=== PATIENT | male | born 1985 | race Caucasian/White ===

== ENCOUNTER 2018-04-08 16:51 | Inpatient (IN) | payer OTHER ==
--- NOTE | 2018-04-08 17:19 | EDPHY ---
H & P Smoking Status: Never smoked Time Seen by Provider: 04/08/18 17:00 HPI/ROS: CHIEF COMPLAINT: Anxiety and possible paranoia HISTORY OF PRESENT ILLNESS: Patient is a 32-year-old male with a history of anxiety and depression and substance abuse sent here by EMS with concern for the paranoia. Patient states that is experiencing concerned that all there were people slammed during have which she has experienced in the past and he went to his human resource office at work to see if he could discuss this possibility that people were accessing his phone and he was then taken away by EMS. Reports no prior history of schizophrenia or paranoia. He does report a history of childhood anxiety and depression but takes no prescribed medication at this time. He denies any current drug use has been sober for 6 years. Denies hallucinations, suicidal ideation and homicidal ideation. REVIEW OF SYSTEMS: Constitutional: No fever, no chills. Eyes: No discharge. ENT: No sore throat. Cardiovascular: No chest pain, no palpitations. Respiratory: No cough, no shortness of breath. Gastrointestinal: No abdominal pain, no vomiting. Genitourinary: No hematuria. Musculoskeletal: No back pain. Skin: No rashes. Neurological: No headache. (Dereje Marin) Physical Exam: General Appearance: Alert and oriented x3 and no distress. Eyes: Pupils equal and round no injection. Respiratory: Chest is nontender, lungs are clear to auscultation. Cardiac: regular rate and rhythm. Gastrointestinal: Abdomen is soft and nontender, no masses, bowel sounds normal. Musculoskeletal: Neck is supple and nontender. Extremities have full range of motion and are nontender. Skin: No rashes or lesions. (Dereje Marin) Constitutional: Initial Vital Signs Temperature (C) 36.7 C 04/08/18 16:53 Heart Rate 86 04/08/18 16:53 Respiratory Rate 18 04/08/18 16:53 Blood Pressure 139/89 H 04/08/18 16:53 O2 Sat (%) 96 04/08/18 16:53 O2 Delivery Mode Room Air Allergies/Adverse Reactions: cephalexin [From Keflex] Allergy (Verified 04/09/18 11:22) Hives Home Medications: Medication Instructions Recorded Multivitamins [Multivitamin (*)] 1 each PO DAILY 06/22/18 Medical Decision Making ED Course/Re-evaluation: Patient medically cleared and awaiting psychiatric evaluation at the end of my shift. Patient signed out to Dr. Rivero for further management of his care. He was given 1 mg of Ativan as needed for sleep. (Dereje Marin) 0700AM: No acute events overnight. Sleeping. Signed over to Dr. Chauhan 7Am Shift change. (Sebastian Rivero) 7:00 a.m.-I assumed care of this patient at shift change. 8:30 a.m.-seen by mental health and looking for inpatient disposition. Admitted to [facility] (Jillian Bishop) - Data Points Laboratory Results: Laboratory Results 04/08/18 17:05 04/08/18 17:05 Medications Given: Discontinued Medications Lorazepam (Ativan) 1 mg PO EDNOW ONE Stop: 04/08/18 23:39 Last Admin: 04/08/18 23:43 Dose: 1 mg Departure - Departure Disposition: [facility] IP Clinical Impression: Acute psychosis Condition: Fair
[2018-04-08 17:50] LABS: PLATELET COUNT 306 10^3/uL (150-400)
[2018-04-08] MEDS ORDERED: LORazepam 1 MG TAB PO ONE (23:38)
--- NOTE | 2018-04-09 00:30 | ASMTTLCEVL ---
TLC Evaluation - Basic Information Evaluation Start Date and 04/08/2018 08:30 PM Time Hospital Status Answers: M1 Hold 72-hr M1 Hold Start Date 04/08/2018 04:21 PM and Time Patient statement Notes: " I went to the HR counselor at work to try to either get to the bottom of or get help with work place incident." Narrative Notes: Pt is a 32 year old male who presented to [facility] via [facility] after pt was placed on a M1 hold by MANUEL Luciano who works in pt's EAP program through his work. Pt stated he worked in [facility] and was involved with "toxic people" and his "computer hard drive got copied." Pt stated his 12 step inventory was also "taken and shared." Pt stated after these incidents, "this caused me to be concerned about my electronic saftey." Pt stated once he moved down here and started working at , he started becoming concerned and noticed that people's behavior would change when he would add their number in his phone contacts. Pt stated he had a nice relationship with his rn mds but when he put her phone number in his phone, "I noticed a change in her behavior." Pt stated he has been concerned that his supervisor soldering may be trying to "set him up with another molina man" because " people assume I'm molina because I don't date." Pt stated he was working the graveyard shift one night and noticed another man working with him alone and felt that his supervisor soldering intentionally put this other worker on shift with him. Pt stated he confronted his supervisor soldering about this and pt stated, "He got real scared." This clinician spoke with MAUNEL Luciano who stated that she spoke with pt for 2 hours today and this was her first interaction with him. Diane stated that pt talked about being followed by "a whole group of people," people being in his apartment and being followed by someone at 2am. Diane stated pt presented as "very confused and agitated," and came across as "not being in touch with reality." Diagnosis History Notes: Pt stated he was dx with depression and anxiety in middle school. Prior suicide attempts Notes: Pt denied any prior suicide attempts Prior hospitalizations Notes: Pt stated he was hospitalized in middle school after his parents . Treatment Responses Notes: Unknown. History of violence Notes: Pt denies any hx of violence. Medications (name, dosage, route, freq uency) Notes: Pt does not take any medications. Allergies/Reaction Notes: Keflex Sleep Notes: WNL Appetite Notes: WNL Medical/Surgical history Notes: Pt stated he does not have any medical problems. 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 Pt stated he is actively involved in the AA program and has a sponsor. Pt denied any drug use. Utox was negative for all substances. BAL was .0. Family composition Notes: Pt stated his parents live in [place]. Pt has a younger BOC who also lives in [place]. Need for family Answers: No participation in patient's care Family psychiatric/substance abuse history Notes: Pt stated his FOC is a recovering alcoholic. Developmental history Notes: Pt stated his parents when he was in middle school and was dx with anxiety, add and depression at that time. Pt stated he was hospitalized in a psychiatric hospital but declined to give any further details. Pt denied any concussions/LOC. When asked about childhood abuse/trauma, pt stated he has managed his issues though his step work. Marital status/children Notes: Pt is single. No children. Living situation Notes: Pt lives in [place] with a another couple. Sexual history/orientation Notes: Pt is heterosexual. Peer support/family strengths Notes: Pt stated he felt let down by his friends in [facility] and doesn't feel very trusting of people. Education level/history Notes: Pt is currently at [employer] studying political science. 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 Notes: None Legal Notes: Pt stated he was arrested twice in college for possessing a fake ID. Confucianist/Spiritual Notes: Pt stated he believes his" higher power is the solution to giving me what I need." Leisure Notes: Snowboarding, skiing Collateral Notes: Diane Luciano LCSW. TLC Evaluation - Mental Status Exam Appearance: Answers: Appropriate Eye Contact: Answers: Good/Direct Affect: Answers: Labile Nervous Behavior: Answers: Cooperative Speech: Answers: Logical Perseverating Thought Process: Answers: Oriented Insight: Answers: Fair Judgement: Answers: Fair Anxiety Signs/Symptoms Answers: Generalized Anxiety Delusions: Answers: Paranoid Ideation Pt reported to have Answers: No suicidal/self-injuring ideation/behavior? Pt reported to be making Answers: No suicidal/self-injuring threats? Pt reported to have Answers: No aggression/assault ideation/behavior? Pt reported to be making Answers: No aggression/assault threats? Pt exhibits inability to Answers: No care for self/grave disability? Ideation/behavior is Answers: No chronic? Patient has a specific Answers: No plan? Pt has access to means to Answers: No execute the plan? Ideation involves Answers: No serious/lethal intent? Ideation has Answers: No delusional/hallucinatory content? History of Answers: No suicidal/self-injuring ideation, behavior, or threats? History of Answers: No aggressive/assaultive ideation, behavior, or threats? History of serious Answers: No physical harm to self/others while in treatment setting? TLC Evaluation - Suicide/Homicide Risk Suicide Risk Factors: Answers: < 20 or > 40 Years of Age Inadequate Social Support Single Homicide/violence risk Answers: None factors: Current Suicidal Answers: No Ideation? Current Suicidal Ideation Answers: No in the Past 48 Hours? Current Suicidal Ideation Answers: No in the Past Month? Current Suicidal Answers: No Ideation, Worst Ever? Suicide Internal Answers: Confucianist Beliefs Protective Factors: Suicide External Answers: Responsibility to Pets Protective Factors: Ranking of patient's Answers: Low suicidal risk: Ranking of patient's Answers: Low homicidal risk: TLC Evaluation - Wrap-up AXIS I Diagnosis (include DSM-V and ICD-10 codes), must also be entered in [place], which is the source of truth. Notes: DELUSIONAL DISORDER (Specifier) 297.1 (F22) Evaluation End Date and 04/09/2018 12:25 AM Time (HH:MM): Date Signed: 04/09/2018 12:29 AM Electronically Signed By:Asia Toscano
--- NOTE | 2018-04-09 10:20 | ASMTTCLDSP ---
TLC Discharge Disposition Disposition: Answers: Admit Disposition Notes: Notes: Pt was read rights and informed of admit to [facility] under a M1 hold. For [facility] admission, the following psychiatrist agreed to accept patient for admission to Behavioral Health ([facility]): Type of Hold: Answers: Involuntary Transportation Hold Hold initiated by: Answers: Other Notes: [facility] Date Signed: 04/09/2018 10:20 AM Electronically Signed By:Cecile Bellamy
[2018-04-09] MEDS ORDERED: MAG HYDROX/AL HYDROX/SIMETH 30 ML UDCUP PO PRN (13:20)
[2018-04-09] MEDS ORDERED: MAGNESIUM HYDROXIDE 30 ML UDCUP PO PRN (13:20)
[2018-04-09] MEDS ORDERED: ACETAMINOPHEN 325 MG TAB PO PRN (13:20)
[2018-04-09] MEDS: NICOTINE POLACRILEX 2 MG GUM B PRN (15:47)
[2018-04-09] MEDS ORDERED: OLANZapine DISINTEGR 5 MG TAB PO PRN (16:55)
--- NOTE | 2018-04-09 17:18 | BAPA ---
[f rep st] ADMISSION PSYCHIATRIC ASSESSMENT DATE OF SERVICE: 04/09/2018 CHIEF COMPLAINT: "I had a sneaking suspicion that due to me bringing up an issue with my cosmetics supervisor, my work environment became a hostile environment." HISTORY OF PRESENT ILLNESS: Pertinent findings from emergency department note. Dated 04/08/2018. The patient was sent to the ER by EMS with concern of paranoia. The patient went to his human resource office at work to see if they could discuss the possibility of people accessing his phone, and then he was placed on an M1 hold and taken away by EMS. The patient denied history of schizophrenia or paranoia. He did report history of anxiety and depression. The patient reported he has been sober from alcohol for 6 years. In the ED, the patient denied hallucinations, suicidal ideation, and homicidal ideation. Pertinent findings from TLC evaluation, dated 04/08/2018. Patient reported to the TLC test engine evaluator that he went to the HR counselor at work to try to either get to the bottom of or get help with workplace incident. The patient presented to [facility] via [facility] after the patient was placed on an M1 hold by SIGN BUILDER SUPERVISOR who worked at the patient's EAP program through his work. Patient reported to the TLC test engine evaluator that he worked in [facility] and was involved with "toxic people" and his "computer hard drive got copied." The patient stated that his 12-step inventory was also "taken and shared." Patient reported that these incidents caused him to be concerned about his electronic safety. The patient reported that once he moved down here to [place] and started working at [employer], he started becoming concerned and noticed that people's behaviors would change when he would add their phone number in his phone contacts. For example, patient reported that he had a nice relationship with his public information specialist, but as soon as he put her phone number in his phone, he stated that her behavior changed. The patient reported that he was concerned that his cosmetics supervisor may be trying to "set him up with another molina man, " because "people assume I'm molina because I don't date." The patient reported that when he was working graveyard shift one night, he noticed another man working with him alone and felt that his cosmetics supervisor intentionally put this worker on the shift with him. The patient stated that he confronted his cosmetics supervisor about this, and patient stated "he got really scared." TLC test engine evaluator spoke with the counselor that placed the patient on the M1 hold, and the counselor reported that this was her first interaction with the patient, and the counselor reported that the patient reported to her that he was being followed by a whole group of people, people being in his apartment, and being followed by someone at 2 a.m. The counselor reported to the TLC test engine evaluator that the patient was very confused and agitated and came across as unable to test reality. The patient was admitted on an M1 hold due to being gravely disabled due to his paranoid behaviors and thoughts. He was reporting to others is currently hospitalized for safety crisis stabilization and medication evaluation. This interviewer reviewed some of the reports that the patient gave to the ED provider and also the TLC test engine evaluator, and the patient does agree with this and states that this is all valid and was occurring. He did report that he was living in [facility] and reports that this group of people that were considered "toxic people" are now trying to pry into his personal life and have been getting others involved in prying into his personal life, including his cosmetics supervisor at work and others at his current work. The patient denies any diagnosis of a current mental illness. Patient states that he was not using any alcohol or substances prior to his hospitalization. Patient describes current psychiatric symptoms as none. Patient describes abuse history as none. With regard to current functioning, the patient describes that his current psychiatric symptoms are having no real affect on his life. He states that he is currently addressing household responsibilities without difficulty. States that other than this incident, he has been working without any difficulty. States that he is starting to socialize more. Reports that he gets along with his parents and his brother, is currently taking a summer course and reports this is going well. The patient reports he does engage in hobbies, and typically these hobbies include working with his dogs and dog sports. Patient reports that he is generally satisfied with his life. Patient denies current suicidal or homicidal ideation and denies current self-injurious ideation. Patient reports protective factors and reasons to live as his dog and his future. Patient reports future goals as finishing his college degree. Patient reports he currently does not have any solid support network as he just recently moved to [place]. Patient reports he currently does not have any outpatient treatment for medication management or therapy. PAST PSYCHIATRIC HISTORY: Patient describes the following psychiatric history. Patient does report having some depression and anxiety in middle school. Patient denies ever being on any psychotropic medications for depression or anxiety. Patient reports history of seeing no one outpatient, no professionals for medication management or therapy. The patient reports history of one inpatient psychiatric hospitalization in [place] around the year 1994 for depression, right around the time his parents . Patient denies history of withdrawal from drugs or alcohol. Patient denies history of suicidal ideation or attempts and denies history of self-injurious behavior. ALLERGIES: Cephalexin. CURRENT MEDICATIONS: None. PAST MEDICAL HISTORY: Patient describes the following. Patient denies any history of neurological disease, traumatic brain injuries or concussions. The patient denies history of major illnesses or major hospitalizations. SOCIAL HISTORY: The patient describes the following social history. Patient reports he was born in [place], and his parents were at the time of his . Patient states his parents got a divorce when he was around the age of 10 and reports he was raised majority of his life in [place] by both parents. The patient reports he currently lives in [place] with roommates. Patient describes meeting all his developmental milestones growing up and reports no learning delays or difficulties. Patient describes his sexual orientation as heterosexual. States he is currently not in a relationship, has never been , and has no children. 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 Patient describes highest level of education as some college. Reports no history of duty. No current anglican or spiritual practice and is currently facing no legal charges. SUBSTANCE USE HISTORY: Patient reports he has been sober and last drank 9 years ago. Patient denies smoking cigarettes or chewing tobacco. Patient denies all other substance use history, including marijuana, meth, cocaine, crack, heroin, prescription medication abuse, and any other illicit substances. FAMILY PSYCHIATRIC HISTORY: Patient describes the following family psychiatric history. Patient reports no history of family mental illness. No history of family suicide or suicide attempts and reports family history of illicit drugs and alcohol use and does not provide any further details regarding this. ADMISSION LABS/STUDIES: CBC, dated 04/08/2018, all within normal limits except for MPV low at 8.6, absolute monos elevated at 0.81. Chemistry all within normal limits. Toxicology negative for all substances of abuse. MENTAL STATUS EXAM: The patient is a well-nourished, well-developed male looking stated chronological age. The patient's attire is appropriate and presents dressed in hospital garb. Attire is neat and clean. Grooming status is appropriate and clean. Ambulation is independent. The patient's gait is normal and coordinated. Posture is normal and relaxed. Eye contact is appropriate and adequate. Motor activity is appropriate with purposeful, organized, and coordinated movements, with no involuntary movements noted. Patient's attitude is fairly cooperative. At times, the patient is defensive. Patient appears fairly attentive and does relate well to this interviewer. Language production is spontaneous. Rate, rhythm, and volume are normal. Patient reports mood as "frustrated." Affect appears to be anxious. The patient's thought process is nonlinear and illogical with loose associations, tangential thought. Patient does not report suicidal, homicidal thoughts, ideas , or plans. Patient denies auditory, visual hallucinations. Patient denies that any of his thinking has delusions. Patient does not appear to be attending to internal stimuli. Patient's orientation is full to person, full to place, full to time, and absent to situation. Attention and concentration are adequate. The patient's insight is poor, and judgment is poor. DIAGNOSIS: Unspecified psychosis, paranoid delusions, persecutory delusions, rule-out delusional disorder and rule-out paranoid personality disorder. FORMULATION: The patient is a 32-year-old male, single, employed, living in [place] with roommates who presents to the hospital involuntarily due to risk to self being gravely disabled and is currently on an M1 hold. Patient was placed on an M1 hold due to grave disability. Patient requires continued inpatient care because of his current psychosis, delusional state, and recent paranoid thoughts that led to the crisis. Patient presents with problems of paranoid delusions, and it is unclear at this time how long the patient has been experiencing these paranoid delusions. Patient's life has been affected by these problems, including accusations at work regarding being monitored and his work environment becoming, as though people were out to get him. It is unclear at this time what the onset or exacerbation of symptoms was preceded by. Based on the patient's history and current presentation, his diagnosis at this time is unspecified psychosis, rule out delusional disorder and a cluster C personality disorder. The patient is a high safety risk due to his current paranoid thoughts. Protective factors while hospitalized include ongoing safety checks, active involvement in treatment, and support from our treatment team. Patient could benefit from inpatient hospitalization for safety, crisis stabilization, and medication evaluation. PLAN: 1. Psychotropic medications: After reviewing options, risks and benefits, patient agrees to Zyprexa Zydis 5 mg po Q4HRS PRN for agitation, psychosis 2. Labs: A1c, fasting lipid panel, liver function tests. 3. Therapy: milieu and group 4. Further investigation including gathering information from patients relatives and review of past case records 5. Continued evaluation and monitoring will be ongoing during the course of patients inpatient hospitalization to inform treatment, to determine if adjustments in medication regimen may benefit patients symptoms, and for discharge planning 6. Safety plan and follow-up outpatient appointments to be established prior to discharge 7. Confer with inpatient treatment team regarding initial treatment plan 8. Review informed consent and recommendations for psychotropic medication treatment listed below now, during the course of hospitalization, and during discharge interview ESTIMATED LENGTH OF STAY: 3-5 days PSYCHOTROPIC MEDICATION TREATMENT INFORMED CONSENT and RECOMMENDATIONS: Review nature of condition, diagnosis, and prognosis. Review nature and purpose of psychotropic medication treatment. Review type of psychotropic medications being ordered. Review risk and benefits of psychotropic medication treatment. Review probable length of time will need to take medications. Review risk and benefits of not undergoing psychotropic medication treatment. Review alternative treatments to psychotropic medications. Review psychotropic medications contraindications, drug-drug interactions, side effects, and importance of reporting any side effects to a psychiatric provider or nurse during inpatient hospitalization, and upon discharge to patients psychiatric outpatient provider, primary care provider, or other health rn patient care. Review importance of asking a nurse, psychiatric provider, or primary care provider any questions or problems concerning the psychotropic medications. Verifty patient understands the information that has been provided, and understands, accepts, and agrees to psychotropic medications. Review patients safety plan and importance of patient to communicate to staff while hospitalized if patient is ever a danger to self/others, or unable to care for self, and upon discharge, the importance for patient to contact [facility] or [facility], or go to the nearest emergency room, if patient is ever a danger to self/others, or unable to care for self. Recommend that upon discharge patient establish medication management treatment with a psychiatric provider, establishes routine therapy appointments, and follow-up with primary care provider. Verify patient understands and agrees to these recommendations. /[id number]/MODL MTDD
[2018-04-10 06:45] VITALS: BP 101/58
--- NOTE | 2018-04-10 07:29 | PDMN ---
Medical Necessity Medical necessity: [facility]: [id number] psychosis- M1 hold, paranoia, gravely disabled by paranoia behavior and thoughts,
[2018-04-10] MEDS: NICOTINE POLACRILEX 2 MG GUM B PRN ×4 (09:08→21:25)
--- NOTE | 2018-04-10 15:56 | SOAPPROG ---
SOAP Progress Note Assessment/Plan: Assessment: 32 yo man who works at was transferred to [facility] ED on M1 hold for paranoid delusions. Plan: 04/10/18 15:47 1. Patient is calm, pleasant, linear and goal-directed. He admits he thought his co-workers were trying to get him fired and believes his friends in [place] copied his hard drive, but says these things "really did happen" and anyone can verify them. He doesn't believe anyone else is out to get him or do him harm. 2. Patient denies any SI/HI. He has no plan to seek revenge on friends or co- workers. 3. He agrees to see EAP counselor at to help manage stress from work. 4. Patient agreed to take Olanzapine PRN while in hospital. He isn't sure about taking meds long-term, but says he is willing to d/w a counselor through his EAP and with his PCP after discharge. 5. MD warned patient about risks of things escalating at work or other conflicts becoming more serious if he feels that friends and co-workers might try to harm him or cause him to lose his job. Patient said he is aware of these risks and agrees to talk to HR at work and his counselor through EAP before things become a crisis. 6. CC spoke to patient's FOC who denied patient has any prior h/o psych tx, no prior psychotic episodes. FOC also denied patient has ever made any statements about wanting to hurt himself or anyone else that FOC has heard or is aware of. 7. At this point, patient does not pose imminent risk to himself or others and does not present as gravely disabled. He does exhibit what seem like paranoid delusions, though they may be based on actual events. Have recommended patient remain in hospital at least until Thursday, so CC can work to set up aftercare plan. Patient wants to leave as soon as his hold expires. Subjective: Met with patient, reviewed chart and d/w staff. Patient presents pleasant, cooperative, calm. He relates fears about co-workers trying to trick him into bringing his dogs to work in order to get him fired. He is also concerned that friends who copied his hard drive are trying to get personal information about him from his computer and phone. While these fears seem irrational and likely represent paranoid delusions, they seem based on actual events. It's possible patient is worried about losing his job and the stress is causing him to exaggerate his fears. His delusions do not present a grave disability and patient has no thoughts, plan or intent to hurt himself or anyone else. CC checked with patient's FOC, who reports patient has no prior h/o psychosis or suicide thoughts/attempts. Patient does not meet criteria for further involuntary commitment. Since he is refusing to stay in hospital voluntarily, will likely d/c him when his hold expires tomorrow with f/u through his EAP. Patient agrees to talk to counselor to discuss work-related issues and managing stress. He says he will talk to PCP and therapist if fears persist or he has any other sxs of depression, radha, psychosis or thoughts of self-harm. Objective: Vital Signs Temp Pulse Resp BP Pulse Ox 36.4 C 77 14 101/58 L 95 04/10/18 06:00 04/10/18 06:00 04/10/18 06:00 04/10/18 06:00 04/10/18 06:00 MSE: Affect: Euthymic Mood: "OK" TP: Linear TC: Denies SI/HI, no AH/VH, denies paranoia Insight/Judgment: Fair in general, poor as it relates to work - Time Spent With Patient Time Spent With Patient: 25" - Pending Discharge Pending Discharge Within 24 Hours: Yes Pending Discharge Date: 04/11/18 (Possible d/c tomorrow if refuses to stay voluntarily) Pending Discharge Time: 11:00 ICD10 Worksheet Patient Problems: Problems Problem Status Onset Acute psychosis Acute Paranoid delusion Acute Persecutory delusion Acute Unspecified psychosis Acute
--- NOTE | 2018-04-10 19:08 | PDHOSCONS ---
History and Physical - Chief Complaint psychiatric disorder - History of Present Illness Consulted service-Internal Medicine Reason for consultation-psychiatric disorder History of present illness: The patient is a 32yo M who was placed on a M1 hold by a counselor. He had gone to at work complaining that his coworkers and cutting room supervisor were "playing games" with him. He had met with a counselor, who told him that he works with nice people and that the patient will need to go someplace to get medication management. The patient did not realize he was being put on a M1 hold when he was sent to [facility] ED, from which he was sent to inpatient Psychiatry. The patient is upset that he has to miss work all weekend and that he had to miss school yesterday because he has been in the hospital. He is willing to work with a therapist and a psychiatrist in the outpatient setting and feels it was unnecessary to be kept as an inpatient. He denies any SI/HI. Past medical history: None. Past surgical history: [place] teeth removal. Medications: none. Allergies: Keflex - urticaria. Social history: pt is quitting chewing tobacco. Denies drug use. Sober from Et[facility] x 9yrs. Lives w/ roommates. From [place]. 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 Family history: no problems. Review of systems: 10 point review of systems was conducted and is negative except per HPI Physical exam: Vitals: Reviewed General: The patient is a male who is alert and in no acute distress. HEENT: normocephalic, extraocular movements intact, conjunctivae clear, no lesions on face. Nares and oral mucosa pink and moist. Neck: trachea midline, no visible masses, no external lesions. CV: +S1/S2, RRR, no MRG. Resp: unlabored, CTAB no RRW. Abd: soft and nondistended. Musculoskeletal: Normal gait. Neuro: cranial nerves II XII grossly intact. Intact gross motor and sensory function. Psych: appropriate mood/affect. Skin: no pallor. Heme/lymph: No peripheral edema. Labs: CBC-within normal limits. Comprehensive metabolic panel-within normal limits. Hemoglobin A1c 5.7. Lipid panel-total cholesterol 214, LDL 122. Drug Toxicity panel-negative. Other Data: None. Impression and plan: Paranoid behavior Possible psychiatric illness Elevated HbA1C Elevated LDL -Recommended that pt watch his diet - cut back on intake of carbs, karly in sweetened beverages. -Congratulated pt on staying sober w/ alcohol. Continue pursuing tobacco cessation. -No acute medical issues that need to be addressed for this visit. -Pt is medically clear for ongoing Psych evaluation. History Information - Allergies/Home Medication List Allergies/Adverse Reactions: cephalexin [From Keflex] Allergy (Verified 04/09/18 11:22) Hives Home Medications: Multivitamins [Multivitamin (*)] 1 each PO DAILY 04/09/18 [Last Taken Unknown] I have personally reviewed and updated: family history, medical history, social history - Social History Smoking Status: Never smoked Review of Systems Review of Systems: Physical Exam Physical Exam: Temp Pulse Resp BP Pulse Ox 36.4 C 77 14 101/58 L 95 04/10/18 06:00 04/10/18 06:00 04/10/18 06:00 04/10/18 06:00 04/10/18 06:00 Lab Data & Imaging Review 04/08/18 17:05 04/08/18 17:05 WBC 6.74 10^3/uL (3.80-9.50) 04/08/18 17:05 RBC 5.25 10^6/uL (4.40-6.38) 04/08/18 17:05 Hgb 16.1 g/dL (13.7-17.5) 04/08/18 17:05 Hct 46.6 % (40.0-51.0) 04/08/18 17:05 MCV 88.8 fL (81.5-99.8) 04/08/18 17:05 MCH 30.7 pg (27.9-34.1) 04/08/18 17:05 MCHC 34.5 g/dL (32.4-36.7) 04/08/18 17:05 RDW 12.7 % (11.5-15.2) 04/08/18 17:05 Plt Count 306 10^3/uL (150-400) 04/08/18 17:05 MPV 8.6 fL (8.7-11.7) L 04/08/18 17:05 Neut % (Auto) 53.2 % (39.3-74.2) 04/08/18 17:05 Lymph % (Auto) 32.6 % (15.0-45.0) 04/08/18 17:05 [place] % (Auto) 12.0 % (4.5-13.0) 04/08/18 17:05 Eos % (Auto) 1.3 % (0.6-7.6) 04/08/18 17:05 Baso % (Auto) 0.6 % (0.3-1.7) 04/08/18 17:05 Nucleat RBC Rel Count 0.0 % (0.0-0.2) 04/08/18 17:05 Absolute Neuts (auto) 3.58 10^3/uL (1.70-6.50) 04/08/18 17:05 Absolute Lymphs (auto) 2.20 10^3/uL (1.00-3.00) 04/08/18 17:05 Absolute Monos (auto) 0.81 10^3/uL (0.30-0.80) H 04/08/18 17:05 Absolute Eos (auto) 0.09 10^3/uL (0.03-0.40) 04/08/18 17:05 Absolute Basos (auto) 0.04 10^3/uL (0.02-0.10) 04/08/18 17:05 Absolute Nucleated RBC 0.00 10^3/uL (0-0.01) 04/08/18 17:05 Immature Gran % 0.3 % (0.0-1.1) 04/08/18 17:05 Immature Gran # 0.02 10^3/uL (0.00-0.10) 04/08/18 17:05 Sodium 141 mEq/L (135-145) 04/08/18 17:05 Potassium 3.7 mEq/L (3.3-5.0) 04/08/18 17:05 Chloride 103 mEq/L (97-110) 04/08/18 17:05 Carbon Dioxide 23 mEq/l (22-31) 04/08/18 17:05 Anion Gap 15 mEq/L (8-16) 04/08/18 17:05 BUN 14 mg/dL (7-23) 04/08/18 17:05 Creatinine 1.0 mg/dL (0.7-1.3) 04/08/18 17:05 Estimated GFR > 60 04/08/18 17:05 Glucose 82 mg/dL (70-100) 04/08/18 17:05 Hemoglobin A1c 5.7 % (4.0-6.0) 04/09/18 Unknown Estim Average Glucose 117 mg/dL (68-126) 04/09/18 Unknown Calcium 9.4 mg/dL (8.5-10.4) 04/08/18 17:05 Total Bilirubin 0.5 mg/dL (0.1-1.4) 04/09/18 Unknown Conjugated Bilirubin 0.3 mg/dL (0.0-0.5) 04/09/18 Unknown Unconjugated Bilirubin 0.2 mg/dL (0.0-1.1) 04/09/18 Unknown AST 35 IU/L (17-59) 04/09/18 Unknown ALT 43 IU/L (21-72) 04/09/18 Unknown Alkaline Phosphatase 85 IU/L (38-126) 04/09/18 Unknown Total Protein 7.9 g/dL (6.3-8.2) 04/09/18 Unknown Albumin 4.7 g/dL (3.5-5.0) 04/09/18 Unknown Triglycerides 133 mg/dL (40-150) 04/08/18 17:05 Cholesterol 214 mg/dL (140-200) H 04/08/18 17:05 Cholesterol Risk Factr 0.5 (0.2-1.0) 04/08/18 17:05 LDL Cholesterol, Calc 122 mg/dL (70-100) H 04/08/18 17:05 LDL Risk Factor 0.8 (0.2-1.0) 04/08/18 17:05 VLDL Cholesterol 27 mg/dL (8-25) H 04/08/18 17:05 Non-HDL Cholesterol 149 mg/dL (90-129) H 04/08/18 17:05 HDL Cholesterol 65 mg/dL (40-65) 04/08/18 17:05 LDL/HDL Ratio 1.88 RATIO (1.00-3.64) 04/08/18 17:05 Cholesterol/HDL Ratio 3.29 RATIO (1.00-4.97) 04/08/18 17:05 Salicylates < 1.0 mg/dL (2.0-20.0) L 04/08/18 17:05 Urine Opiates Screen NEGATIVE (NEGATIVE) 04/08/18 17:00 Acetaminophen < 10 mcg/mL (10-30) L 04/08/18 17:05 Urine Barbiturates NEGATIVE (NEGATIVE) 04/08/18 17:00 Ur Phencyclidine Scrn NEGATIVE (NEGATIVE) 04/08/18 17:00 Ur Amphetamine Screen NEGATIVE (NEGATIVE) 04/08/18 17:00 U Benzodiazepines Scrn NEGATIVE (NEGATIVE) 04/08/18 17:00 Urine Cocaine Screen NEGATIVE (NEGATIVE) 04/08/18 17:00 U Marijuana (THC) Screen NEGATIVE (NEGATIVE) 04/08/18 17:00 Ethyl Alcohol < 10 mg/dL (0-10) 04/08/18 17:05 Assessment & Plan Assessment: Acute psychosis (Acute) Paranoid delusion (Acute) Persecutory delusion (Acute) Unspecified psychosis (Acute)
[2018-04-11] MEDS: NICOTINE POLACRILEX 2 MG GUM B PRN ×2 (09:00→12:24)
--- NOTE | 2018-04-11 13:21 | ASMTBHMTP ---
Master Treatment Plan Master Treatment Plan Answers: Mood Instability with for: Psychosis Date: 04/10/2018 Diagnosis on Admission: Delusional Disorder Expected length of stay: 3-5 Days Reason for admission: Notes: 32 year old male who presented to [facility] after being placed on M1 hold by HERBARIUM WORKER who works in pt's EAP program. Patient's stated presenting problems: Notes: Had expressed concerns about a hostile work environment, went to HR to try to correct issues, spoke with counselor, and was placed on M1 hold. Patient's goals for treatment: Notes: "Love to work on follow-up plan" Patient's strengths: Notes: "Honest, loyal, good with dogs and animals" Identify supports outside of hospital: Notes: "Don't have a lot of support" Discharge criteria: Notes: Patient will demonstrate more stable mood by discharge. Initial disposition plan/considerations: Notes: Pt. plans to return home and go back to work. Master Treatment Plan Required Signatures Psychiatrist signature: Answers: Ge Alvarez MD: RN on-shift signature: Answers: RN: Patient signature: Answers: Patient: Date Signed: 04/10/2018 08:48 AM Electronically Signed By:Leesa Apodaca
--- NOTE | 2018-04-11 13:25 | ASMTBHDC ---
Notes Note: Notes: Pt. reports being "not to bad" today. Pt. stated it took him a little while to fall asleep, but did sleep well. Pt. stated he missed work today, and is scheduled to work tomorrow. Pt. expressed how he would like to discharge once his hold it up. CC explained she has not been able to secure follow-up appointments. Pt. stated he is more than willing to schedule these appointments himself. Pt. stated he is looking forward to "gettng home to my boys". Pt. denied SI, HI, AVH and paranoia. Pt. requested referrals for EAP program and Radha. Date Signed: 04/11/2018 01:24 PM Electronically Signed By:Leesa Apodaca
--- NOTE | 2018-04-11 15:41 | BDS ---
[f rep st] BEHAVIORAL HEALTH DISCHARGE SUMMARY REASON FOR ADMISSION: The patient is a 32-year-old man, who was brought into the [facility] ED on an M1 hold. The patient was sent to the ER by his employee assistance program counselor at [facility]. The patient went to his human resource office at work on 04/08/2018, to discuss the possibility that coworkers had been trying to get him fired. His HR department sent him to the EAP counselor, and the patient's EAP counselor placed him on a mental health hold due to grave disability because she felt the patient was exhibiting symptoms of paranoid psychosis. The patient told his counselor that when he lived in [place], people had copied his computer hard drive. He says he was participating in AA at the time, and there were sensitive information on his hard drive about his 12-step inventory, and he said that information was "taken and shared." He also said that since he moved to [place] and started working at , he has become concerned because he has been noticing that some of his coworkers have been behaving oddly around him. He said he was also concerned that his turf and grounds supervisor may be trying to "set him up with another molina man " because he said, "People assume I'm molina because I don't date." The patient reported that he was also working [employer] shift one night and noticed a man working with him. He confronted his turf and grounds supervisor about this, and the patient said that he was "really scared" because he was afraid he was going to lose his job. The EAP counselor who saw the patient noted that the patient has no prior psychiatric history. The patient denies any previous symptoms of paranoia or psychosis. He has never made any suicide attempts. He does not endorse any thoughts, plans, or intents to hurt himself or anyone else. Since this was the first time that the EAP counselor had seen the patient, she said that she was concerned because the patient was exhibiting paranoid delusions, and she felt like he needed to be hospitalized in order to get treatment. ADMITTING DIAGNOSES: Unspecified psychosis, paranoid delusions, persecutory delusions, rule out delusional disorder, and rule out paranoid personality disorder. ADMITTING PHYSICAL EXAMINATION: This was done by Zaira Vicente. Please see Dr. Vicente's note dated 04/10/2018, for further details. ADMISSION LABS: Done in the [facility] ED. The patient's white cell count was 6.74, hemoglobin 16.1, hematocrit 46.6, and platelet count 306. Sodium was 141 , potassium 3.7, chloride 103, BUN 14, creatinine 1.0, and glucose 82. Hemoglobin A1c was 5.7. Calcium was 9.4, AST 35, ALT 43, alkaline phosphatase 85, and albumin 4.7. Triglycerides were 133, cholesterol was elevated at 214, LDL cholesterol was elevated at 122, VLDL cholesterol was high at 27, and HDL cholesterol was normal at 65. The patient's urine toxicology screen was negative for all drugs of abuse. Salicylate and acetaminophen levels were both undetected. Ethyl alcohol level was less than 10. HOSPITAL COURSE: The patient was admitted to the inpatient Behavioral Health Services Unit. The patient was pretty upset that he had been admitted to the hospital. He did not feel that he had a severe mental illness or problem that warranted being placed on a mental health hold. He was upset that his EA counselor had put him on the mental health hold. When this MD met with the patient on 04/10/2018, the patient was calm, pleasant, linear, and goal directed. The patient tried to explain to this MD why he had gone to see his HR counselor. He said that he was having difficulties at work. He did feel like his coworkers were behaving inappropriately, and he was concerned that they were trying to get him fired. He recounted several incidents at work were coworkers had treated him differently than in the past. He says in one instance , he felt like his coworkers were trying to get him into trouble by encouraging him to bring his dogs to work and parking a bus in the wrong place. He also says that when he lived in [place], he was worried that some colleagues there had copied his hard drive and released some sensitive personal information related to the patient's 12-step program. The incidents that the patient reported did seem to be based on actual fact, although without corroborating the patient's testimony it is hard to know how much of what he reports is real and how much of it is an exaggeration or a distortion of real events. There does seem to be a pattern of paranoid thoughts , but it does not seem in this MD's opinion that the patient's paranoia has interfered with his ability to function and that it does not pose any grave disability or imminent risk of harm to the patient. He has been going to work. He has not had any suspension, disciplinary action, or probation based upon his behaviors or his comments at work. He has otherwise behaved appropriately and done his job responsibly. 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 There has been no mention of an impairment in his ability to do his school work. He is taking care of 2 dogs at home. He is able to provide for his basic necessities, food, clothing, and group home, and take care of himself. He is not engaged in any inappropriate behaviors or any illegal activities. He is not engaged in any risk-taking or impulsive behavior that has resulted in compromising his safety or posing a risk or danger to anyone else. At this point after MD's assessment of the patient, he does not seem to pose any imminent risk to himself or others. He does not present as gravely disabled. He does exhibit what seem like paranoid delusions, though they may be based on actual events. MD did recommend that the patient remain in the hospital until Thursday so that the rn home care can set up his after aftercare appointments. The patient said that he did not want to stay voluntarily and that he wanted to leave as soon as his mental health hold . He is supposed to be at work on Thursday. He missed today, wants to go to work tomorrow, and wants to check in on his dogs at home. The patient says that he is willing to go back and see an EAP counselor to help manage stress and conflict in his work environment. He says that he does not want to see the same EAP counselor who put him on the mental health hold, but he would be open to scheduling an appointment with a different counselor in his EAP program. The rn home care was not able to contact anyone at the patient's EAP office and so gave the patient a phone number to call and schedule his own appointments, which the patient said he would be more than willing to do. The patient was not interested in taking any medications while he was in the hospital. He was offered olanzapine 5 mg p.o. p.r.n. to help with his thought disorder. The patient states that he would not want to take medications as he was concerned about side effects and did not feel like he needed them. During his hospitalization, the patient denied any symptoms of depression. He denied feeling helpless, hopeless, or worthless. He was future oriented and had plans to return to work. He had no thoughts, plans, or intents to hurt himself or anyone else. Other than his delusions, there was no other evidence of psychosis. He had denied any hallucinations. There was no evidence of responding to internal or external stimuli. There were no ideas of reference or any other bizarre thoughts. The patient had no symptoms of radha. There was no evidence of pressured speech, increase in goal- directed activity, decreased need for sleep, grandiosity, or reckless or impulsive behaviors. CONDITION AT DISCHARGE: Stable. The patient's affect was euthymic. He was appropriate, linear, and goal directed. He denied any psychotic symptoms. He was willing to seek followup counseling through his employee assistance program. DISCHARGE MEDICATIONS: The patient did not come into the hospital taking any medications other than a multivitamin at home. He was given no medications at discharge. DISCHARGE DIAGNOSES: 1. Unspecified psychotic disorder. 2. Alcohol use disorder in full sustained remission. 3. The patient is not connected with any outpatient treatment, lack of social support, tensions and conflict at work, possible untreated psychotic disorder. DISPOSITION: The patient was discharged from [address] [place] [address], with plans to follow up with his employee assistance program. Since the rn home care was not able to make appointments for the patient over the weekend, he was instructed to call his employer on Thursday morning and set up those appointments. He said that he would be willing to do this. LEGAL COURSE: The patient was admitted to [address] [place] [address] on a 72-hour hold. He was discharged upon the expiration of his mental health hold and discharged home. /[id number]/MODL MTDD
== END 2018-04-11 14:45 | disposition home or self-care (01) | DRG 885 ==
LOC: EEVIPCON 16:51 → BBEH 04-09 12:25
PROVIDERS: ADMIT Psychiatry & Neurology Psychiatry; ATTEND Psychiatry & Neurology Psychiatry
DX: F29 Unspecified psychosis not due to a substance or known physiological condition (principal); F10.11 Alcohol abuse, in remission
CPT/HCPCS: 80305; G0480